=== PATIENT | male | born 1955 | race Caucasian/White ===

== ENCOUNTER 2020-04-05 07:31 | Day surgery (SDC) | payer BC ==
[~2020-04-05] VITALS: Ht 180.3 cm; Wt 75.3 kg
[2020-04-05 07:57] VITALS: BP 129/81; PULSE 66; TEMP 96.7
[2020-04-05] MEDS ORDERED: SAW PALMETTO500 M1 PO (08:40)
[2020-04-05] MEDS ORDERED: VITAMINE200 PO (08:41)
[2020-04-05] MEDS ORDERED: NATURAL GINKGO500 MG PO (08:42)
[2020-04-05] MEDS ORDERED: GLUCOSAMINE & C1 CA2 PO (08:42)
[2020-04-05] MEDS ORDERED: ONE-A-DAY ESSE1 EACH PO (08:42)
[2020-04-05] MEDS ORDERED: VITAMIN B12 781 TAB PO (08:43)
[2020-04-05] MEDS ORDERED: ASPIRIN 81M81 MG/TA2 PO (08:44)
[2020-04-05] MEDS ORDERED: TEMOVATE OINT30 GM TOP (08:44)
[2020-04-05] MEDS ORDERED: AUVI-Q IM (08:46)
[2020-04-05 09:40] VITALS: BP 112/79; PULSE 61; TEMP 97.1
--- NOTE | 2020-04-05 09:40 | NUR ---
TO [facility] PER CART FROM ENDOSCOPY. ALERT ORIENTED X3, TALKING WITH STAFF. AMBULATED TO RECLINER WITH ASSIST AND TOLERATED WELL. RECEIVED OJ AND MUFFIN.
[2020-04-05 09:55] VITALS: BP 105/75; PULSE 58
--- NOTE | 2020-04-05 09:55 | NUR ---
ATE 100% AND TOLERATED WELL. DISCONTINUED IV AND INT PATIENT GETTING DRESSED
[2020-04-05 10:10] VITALS: BP 106/70; PULSE 59
--- NOTE | 2020-04-05 10:18 | NUR ---
DR LOPEZ INTO TALK WITH PATIENT.
--- NOTE | 2020-04-05 10:27 | NUR ---
RECEIVED DISCHARGE INSTRUCTIONS AND VERBALIZED UNDERSTANDING.
--- NOTE | 2020-04-05 10:29 | NUR ---
DISCHARGED PER WC BY NURSING STAFF TO PRIVATE CAR IN CARE OF KIRA.
--- NOTE | 2020-04-05 10:41 | NUR ---
DISCHARGED PER WC BY NURSING STAFF TO PRIVATE CAR IN CARE OF KIRA
== END 2020-04-05 10:42 | disposition home or self-care (01) ==
LOC: SDCO 07:31
DX: Z12.11 Encounter for screening for malignant neoplasm of colon (principal); K57.30 Diverticulosis of large intestine without perforation or abscess without bleeding; K62.1 Rectal polyp; J45.909 Unspecified asthma, uncomplicated; Z79.82 Long term (current) use of aspirin; Z98.52 Vasectomy status
CPT/HCPCS: J2704; J3010; J7030

== ENCOUNTER 2022-03-12 09:45 | Day surgery (SDC) | payer BC ==
[~2022-03-12] VITALS: Ht 180.3 cm; Wt 72.5 kg
[~2022-03-12 09:45] MED LIST: ASPIRIN 81M81 MG/TA2 PO; AUVI-Q IM; GLUCOSAMINE & C1 CA2 PO; NATURAL GINKGO500 MG PO; ONE-A-DAY ESSE1 EACH PO; SAW PALMETTO500 M1 PO; TEMOVATE OINT30 GM TOP; VITAMIN B12 781 TAB PO; VITAMINE200 PO
[2022-03-12 11:20] VITALS: BP 149/80; PULSE 64; TEMP 98.2
[2022-03-12] MEDS ORDERED: NORCO 325 MG-51 TAB PO (13:34)
[2022-03-12 14:10] VITALS: BP 129/78; PULSE 61; TEMP 98
--- NOTE | 2022-03-12 14:10 | NUR ---
PT TRANSPORTED TO [facility] VIA STRETCHER, A&OX3. REPORT RECEIVED FROM PAUL LONGORIA. HEART RATE REG, LUNG SOUNDS CLEAR BILAT. +BS X4 QUAD. ABD SOFT, TENDER IN RLQ, DRSG X3 TO ABD C, D, I; SCROTAL SUPPORT IN PLACE. SPOUSE, KIRA AT BEDSIDE. PT TOLERATING LIQUIDS AND FOOD WELL. CALL LUCERO WITHIN REACH; SAFETY MAINTAINED.
[2022-03-12 14:25] VITALS: BP 124/75; PULSE 65
--- NOTE | 2022-03-12 14:25 | NUR ---
Patient is resting without complaints of pain or nausea. Scrotal support in place. IV fluids infusing. Siderails up x2. Spouse in room.
[2022-03-12 14:40] VITALS: BP 121/68; PULSE 67
--- NOTE | 2022-03-12 14:40 | NUR ---
Eating muffin and drinking juice.
[2022-03-12 14:55] VITALS: BP 128/66; PULSE 62
--- NOTE | 2022-03-12 14:55 | NUR ---
Resting and denies pain.
[2022-03-12 15:10] VITALS: BP 116/68; PULSE 79
--- NOTE | 2022-03-12 15:10 | NUR ---
Tolerated snack well and denies need for pain medication. Scrotal support on.
--- NOTE | 2022-03-12 15:20 | NUR ---
IV to INT and assisted into bathroom. Gait steady and tolerates activity well. Able to void and returns to room. Patient dresses with assist of spouse. INT discontinued.
--- NOTE | 2022-03-12 15:40 | NUR ---
Dismissal instructions given and patient voices understanding of these.
--- NOTE | 2022-03-12 15:43 | NUR ---
Patient dismissed to home driven by spouse and taken to the front entrance per wheelchair and assisted into car with instructions in hand.
== END 2022-03-12 15:43 | disposition home or self-care (01) ==
LOC: SDCO 09:45
DX: K40.90 Unilateral inguinal hernia, without obstruction or gangrene, not specified as recurrent (principal)
CPT/HCPCS: C1781; J0690; J1100; J1170; J1885; J2405; J2704; J3010; J7120